=== PATIENT | female | born 1950 ===

== ENCOUNTER → 2021-08-29 | Outpatient (CLI) | payer MEDICARE, OTHER | END | disposition home or self-care (01) | LOC: LAB SHORT 14:45 → LAB 14:45 | DX: D22.61 Melanocytic nevi of right upper limb, including shoulder (principal); D22.62 Melanocytic nevi of left upper limb, including shoulder; L02.212 Cutaneous abscess of back [any part, except buttock and flank]; L29.8 Other pruritus; L57.8 Other skin changes due to chronic exposure to nonionizing radiation; L81.4 Other melanin hyperpigmentation; Z71.89 Other specified counseling | CPT/HCPCS: 87070; 87205 ==